=== PATIENT | female | born 1980 | race Caucasian/White ===

== ENCOUNTER → 2020-11-07 | Day surgery (SDC) | payer OTHER | END | disposition home or self-care (01) | LOC: FMAMMOTONE 09:04 | PROVIDERS: ATTEND Surgery | PROC: 0H9U3ZX Drainage of Left Breast, Percutaneous Approach, Diagnostic (ICD-10-PCS; principal; 2020-11-07) | DX: D24.2 Benign neoplasm of left breast (principal) | CPT/HCPCS: 19081; 76098-TC-FY; A4648 ==